=== PATIENT | male | born 1995 | race Two or more races ===

== ENCOUNTER 2020-02-20 13:08 | Outpatient (REF) | payer SELFPAY | END 2020-02-20 13:09 | disposition home or self-care (01) | LOC: HO.LAB 13:08 | PROVIDERS: Visit Provider Internal Medicine | DX: Z20.828 Contact with and (suspected) exposure to other viral communicable diseases (principal) | CPT/HCPCS: C9803; U0003 ==

== ENCOUNTER 2021-09-09 10:21 | Outpatient (REF) | payer OTHER, SELFPAY ==
[2021-09-09 11:35] LABS: Appearance Urine CLEAR; Color Urine YELLOW; Glucose Urine UA NEG (NEG); Leukocyte Esterase Urine NEG (NEG); Nitrite Urine NEG (NEG); PH 6.5 (5.0-8.0); Urine Blood NEG (NEG); Urine Ketones NEG (NEG); Urine Protein NEG (NEG-TRACE)
[2021-09-09 11:41] LABS: Alanine Aminotransferase 31 U/L (0-40); Albumin Level 4.4 g/dL (3.5-5.0); Alkaline Phosphatase 75 U/L (39-117); Anion Gap 13 (12-20); Aspartate Amino Transferase 35 U/L (5-37); Bilirubin Total 1.6 mg/dL (0.0-1.0); Blood Urea Nitrogen 7 mg/dL (9-16); C Reactive Protein 0.15 mg/dL (< or = 0.50); Calcium 9.5 mg/dL (8.4-10.2); Carbon Dioxide 27 mmol/L (22-29); Chloride 104 mmol/L (96-108); Cholesterol 162 mg/dL; Estimated Glomerular Filt Rate > 60; Glucose Fasting 91 mg/dL (60-99); HDL Cholesterol 53 mg/dL; LDL Cholesterol Calculated 98 mg/dl; Potassium 4.5 mmol/L (3.3-5.1); Sodium 139 mmol/L (135-145); Total Protein 7.4 g/dL (6.5-8.0); Triglycerides 57 mg/dL
[2021-09-09 11:54] LABS: HBS Num1 7.44 mIU/mL (0-7.99); HBc Num1 0.12 S/CO (0.00-0.79); HBsAGNum1 0.17 S/CO (0.00-0.99); HIV AB/AG Nonreactive (Nonreactive); HIV Num 1 0.07 S/CO (0.00-0.99); Hepatitis B Core Antibody Nonreactive (Nonreactive); Hepatitis B Surface Antigen Negative (Negative); TSH reflex Free T4 0.96 uIU/mL (0.32-4.0); ~HepC Num1 0.21 S/CO (0.00-0.79); ~Hepatitis B Surface Antibody NONREACTIVE (Nonreactive); ~Hepatitis C Antibody Nonreactive (Nonreactive)
[2021-09-09 14:05] LABS: CT PCR NOT DETECTED (Not Detect.); NG PCR NOT DETECTED (Not Detect.)
[2021-09-10 08:22] LABS: Syphilis Screen Nonreactive (Nonreactive)
[2021-09-11 14:07] LABS: Transglutaminase Ab IgG <1.0 U/mL; Transglutaminase IgA <1.0 U/mL
== END 2021-09-09 10:22 | disposition home or self-care (01) ==
LOC: HO.LAB 10:21
PROVIDERS: PCP Physician Assistant; Visit Provider Physician Assistant
DX: Z11.4 Encounter for screening for human immunodeficiency virus [HIV] (principal); Z13.220 Encounter for screening for lipoid disorders; Z13.29 Encounter for screening for other suspected endocrine disorder; Z11.3 Encounter for screening for infections with a predominantly sexual mode of transmission; Z20.2 Contact with and (suspected) exposure to infections with a predominantly sexual mode of transmission; K52.9 Noninfective gastroenteritis and colitis, unspecified; R14.0 Abdominal distension (gaseous); R30.0 Dysuria; R35.0 Frequency of micturition
CPT/HCPCS: 80053; 80061; 81003; 84443; 86140; 86364; 86704; 86706; 86780; 86803; 87340; 87389; 87491; 87591

== ENCOUNTER 2022-04-21 17:56 | Emergency (ER) | payer OTHER, SELFPAY ==
[2022-04-21 18:07] VITALS: BP 142/89; PULSE 72; RESP 20; TEMP 36.8; O2SAT 98; BMI 26.6
--- NOTE | 2022-04-21 18:07 | ED.MALEGU ---
HPI - Male Genitourinary General Chief complaint: Urogenital-Male <Heather Lopez CNP - Last Filed: 04/21/22 18:13> Stated complaint: ?UTI <Heather Lopez CNP - Last Filed: 04/21/22 18:13> Time Seen by Provider: 04/21/22 18:46 <Heather Lopez CNP - Last Filed: 04/21/22 18:13> Source: patient <Rey Hook DO - Last Filed: 04/21/22 18:56> Mode of arrival: ambulatory <DO Tiffani Rouse Last Filed: 04/21/22 18:56> Limitations: no limitations <DO Tiffani Rouse Last Filed: 04/21/22 18:56> History of Present Illness HPI Narrative: 26-year-old male presents emergency department complaining of blood in his urine. Patient states that he sent urine here is unsure if there was any blood when he arrived patient denies fevers chills chest pain nausea vomiting or diarrhea. Patient denies any trauma to the area patient is sexually active <Rey Hook DO - Last Filed: 04/21/22 18:56> MD Complaint: possible STD exposure <DO Tiffani Rouse Last Filed: 04/21/22 18:56> Related Data Home medications: Previous Rx's Medication Instructions Recorded ketoconazole 2 % shampoo 1 appl topical 3XW 4 weeks #120 mL 08/12/21 omeprazole 20 mg capsule,delayed 20 mg PO DAILY 60 days #60 caps 08/12/21 release oxybutynin chloride 5 mg 5 mg PO DAILY 30 days #30 tabs 11/13/21 tablet,extended release 24 hr <Heather Lopez CNP - Last Filed: 04/21/22 18:13> Allergies/Adverse reactions: Allergies Allergy/AdvReac Type Severity Reaction Status Date / Time No Known Allergies Allergy Verified 09/09/21 09:48 <Heather Lopez CNP - Last Filed: 04/21/22 18:13> Review of Systems Review of Systems: Review of systems: General: Patient denies any fever chills recent illness or falls Musculoskeletal: Denies back pain or body aches or other injuries HEENT: denies headache, runny nose, ear pain Respiratory: denies shortness of breath, cough Cardiovascular: no chest pain or palpitations : Hematuria denies dysuria, frequency Abdomen: no nausea vomiting denies abdominal pain Extremities: no swelling, no pain Skin: no diaphoresis <Rey Hook DO - Last Filed: 04/21/22 18:56> Yes all other systems are reviewed and are negative <Rey Hook DO - Last Filed: 04/21/22 18:56> [facility] Past Medical History Surgical History: Surgical History No pertinent past surgical history <Heather Lopez CNP - Last Filed: 04/21/22 18:13> Family History Family History: Family History Mother Hypertension Father Hypertension Diabetes <Heather Lopez CNP - Last Filed: 04/21/22 18:13> Social History Social History: Social History Housing: Apartment Alcohol intake: former Patient Tobacco Use Status: Never used Tobacco e-Cigarette/Vaping Use: Never Used Second Hand Smoke Exposure: No Substance Use Type: Marijuana service: No Current occupational status: employed Current occupation: painting/ [employer] Current occupational exposures/hazards: No Cognitive needs: No Hearing needs: No Vision needs: Yes <Heather Lopez CNP - Last Filed: 04/21/22 18:13> Physical Exam Vital Signs: Vital Signs: Last Vital Signs Temp 98.2 F 04/21/22 18:07 Pulse 72 04/21/22 18:07 Resp 20 04/21/22 18:07 BP 142/89 H 04/21/22 18:07 Pulse Ox 98 04/21/22 18:07 O2 Del Method 04/21/22 18:07 BMI result Body Mass Index 26.6 <Heather Lopez CNP - Last Filed: 04/21/22 18:13> Vital Signs: Last Vital Signs Temp 98.2 F 04/21/22 18:07 Pulse 72 04/21/22 18:07 Resp 20 04/21/22 18:07 BP 142/89 H 02/07/23 18:07 Pulse Ox 98 04/21/22 18:07 O2 Del Method 04/21/22 18:07 BMI result Body Mass Index 26.6 <Rey Hook DO - Last Filed: 04/21/22 18:56> General: Well-appearing well-nourished in no signs of distress HEENT: Normocephalic atraumatic Neck: No signs of JVD, no masses no tenderness or lymphadenopathy Cardiovascular: Regular rate and rhythm Respiratory: Clear to auscultation bilaterally Abdomen: Soft nontender no masses no CVA tenderness Extremities: Normal pedal pulses no signs of edema Skin: Dry warm no rashes Back: No tenderness full ROM <Rey Hook DO - Last Filed: 04/21/22 18:56> Course Course Course Narrative: This is an RME: Additional HPI, ROS, PE not included below will be deferred to primary provider. Patient is 26 old male presents emergency department, Reports hermaturia x 30-45 minutes. States this has happened once before, reportedly due to urinary retention. Denies dysuria, urinary frequency, ABD pain, back/ flank pain, nausea, vomiting, fevers, chills. Denies penile discharge. Requests testing for STI, has had recent new sexual contacts. <Heather Lopez SENIOR CARE PROVIDER - Last Filed: 04/21/22 18:13> Medical Decision Making Medical Decision Making [facility] Narrative: Urinalysis does not show any white blood cells or red blood cells I do not think there is any need for further testing I do not think that this patient needs to be treated for STDs this time with completely normal urinalysis today with patient follow-up with hi his doctor pending results and treatment <Rey Hook DO - Last Filed: 04/21/22 18:56> Differential Diagnosis Differential Diagnoses: The differential diagnosis associated with the presentation includes <Rey Hook DO - Last Filed: 04/21/22 18:56> UTI bladder cancer STIs. Patient <Rey Hook DO - Last Filed: 04/21/22 18:56> Admission/Observation Consideration of admission/observation: Escalation of care including admission/observation considered <Rey Hook DO - Last Filed: 04/21/22 18:56> Lab Data [facility] Lab Attestation statement: I reviewed the patient's lab results. <Rey Hook DO - Last Filed: 04/21/22 18:56> Labs: Lab Results 04/21/22 Range/Units 18:23 Urine Color Yellow Urine Appearance Clear Urine pH 6.0 (5.0-9.0) Ur Specific [place] 1.020 (1.005-1.025) Urine Protein Negative (Neg-Trace) mg/dL Urine Glucose (UA) Negative (Negative) mg/dL Urine Ketones Negative (Negative) mg/dL Urine Blood Negative (Negative) Urine Nitrite Negative (Negative) Ur Leukocyte Esterase Negative (Negative) <Heather Lopez CNP - Last Filed: 04/21/22 18:13> Lab Results 04/21/22 Range/Units 18:23 Urine Color Yellow Urine Appearance Clear Urine pH 6.0 (5.0-9.0) Ur Specific [place] 1.020 (1.005-1.025) Urine Protein Negative (Neg-Trace) mg/dL Urine Glucose (UA) Negative (Negative) mg/dL Urine Ketones Negative (Negative) mg/dL Urine Blood Negative (Negative) Urine Nitrite Negative (Negative) Ur Leukocyte Esterase Negative (Negative) <Rey Hook DO - Last Filed: 04/21/22 18:56> Discharge Plan Discharge Clinical Impression: Hematuria, Screening for STD (sexually transmitted disease) <Heather Lopez CNP - Last Filed: 04/21/22 18:13> Patient Disposition: Home, Self-Care <Heather Lopez CNP - Last Filed: 04/21/22 18:13> Instructions: Hematuria (ED) <Heather Lopez CNP - Last Filed: 04/21/22 18:13> Additional Instructions: Please follow up with STI screening. If you have any other concerns please return to the ED. <Heather Lopez CNP - Last Filed: 04/21/22 18:13> Prescriptions: No Action oxybutynin chloride 5 mg tablet extended release 24hr 5 mg PO DAILY 30 Days Qty: 30 3RF omeprazole 20 mg capsule,delayed release(DR/EC) 20 mg PO DAILY 60 Days Qty: 60 1RF ketoconazole 2 % shampoo 1 appl topical 3XW 28 Days Qty: 120 1RF <Heather Lopez CNP - Last Filed: 04/21/22 18:13>
[2022-04-21 18:41] LABS: Appearance Urine Clear; Color Urine Yellow; Glucose Urine UA Negative (Negative); Leukocyte Esterase Urine Negative (Negative); Nitrite Urine Negative (Negative); Urine Blood Negative (Negative); Urine Ketones Negative (Negative); Urine Protein Negative (Neg-Trace)
[2022-04-22 09:15] LABS: CT PCR NOT DETECTED (Not Detect.); NG PCR NOT DETECTED (Not Detect.)
== END 2022-04-21 19:55 | disposition home or self-care (01) ==
PROVIDERS: Nurse Practitioner Family; Emergency Provider Student in an Organized Health Care Education/Training Program; PCP Physician Assistant
DX: R31.9 Hematuria, unspecified (principal); Z20.2 Contact with and (suspected) exposure to infections with a predominantly sexual mode of transmission; Z79.899 Other long term (current) drug therapy
CPT/HCPCS: 0353U; 81003; 99282; 99283

== ENCOUNTER 2022-05-15 08:58 | Emergency (ER) | payer OTHER, SELFPAY ==
[2022-05-15 09:04] VITALS: BP 129/85; PULSE 73; RESP 18; TEMP 35.7; O2SAT 98; BMI 26.9
--- NOTE | 2022-05-15 09:40 | ED.MALEGU ---
HPI - Male Genitourinary General Chief complaint: Urogenital-Male Stated complaint: blood in urine, frequent urnination Time Seen by Provider: 05/15/22 09:40 Source: patient Mode of arrival: ambulatory Limitations: no limitations History of Present Illness HPI Narrative: Patient is a 26 year old assigned male at with no reported medical history presenting to the emergency department today requesting STI testing. Patient states that he is having burning with urination and is concerned he has an STI. Patient denies any dizziness, lightheadedness, abdominal pain, nausea, vomiting, fever, chills, blurry vision, double vision, loss of vision, chest pain, difficulty breathing, shortness of breath, back pain, night sweats, increased urinary frequency, increased urinary urgency, blood in his urine or stool, syncope or a near syncopal episode, recent trauma or falls, bowel incontinence, bladder incontinence, bowel retention, bladder retention, or any other complaints at this time. MD Complaint: possible STD exposure Severity: mild Severity scale (1-10): 2 Relieving factors: none Exacerbating factors: none Associated symptoms: Reports denies other symptoms Related Data Sexually active: Yes Previous Rx's Medication Instructions Recorded ketoconazole 2 % shampoo 1 appl topical 3XW 4 weeks #120 mL 08/12/21 omeprazole 20 mg capsule,delayed 20 mg PO DAILY 60 days #60 caps 08/12/21 release oxybutynin chloride 5 mg 5 mg PO DAILY 30 days #30 tabs 11/13/21 tablet,extended release 24 hr doxycycline hyclate 100 mg tablet 100 mg PO BID 7 days #14 tabs 05/15/22 Allergies Allergy/AdvReac Type Severity Reaction Status Date / Time No Known Allergies Allergy Verified 09/09/21 09:48 Review of Systems Constitutional: Constitutional: Reports no additional constitutional complaints, Denies chills, Denies fever(s) and Denies night sweats Eyes: Eyes: Reports no additional eye complaints, Denies blurry vision, Denies change in vision, Denies diplopia, Denies eye discharge, Denies loss of vision and Denies eye pain ENT: Denies dizziness Cardiovascular: Cardiovascular: Reports no additional cardiovascular complaints, Denies chest pain, Denies lightheadedness, Denies Loss of Consciousness and Denies dyspnea Respiratory: Respiratory: Reports no additional respiratory complaints and Denies dyspnea Gastrointestinal: Gastrointestinal: Reports no additional gastrointestinal complaints, Denies abdominal pain, Denies melena, Denies hematochezia, Denies change in bowel habits and Denies change in stool character Genitourinary: Genitourinary: Reports no additional male genitourinary complaints, Denies hematuria, Denies oliguria, Denies difficulty urinating, Reports dysuria, Denies urinary frequency, Denies urinary hesitancy, Denies urinary incontinence and Denies urinary urgency Musculoskeletal: Musculoskeletal: Reports no additional musculoskeletal complaints, Denies numbness and Denies tingling Neurologic: Denies dizziness, Denies loss of vision, Denies numbness and Denies tingling Psychiatric: Psychiatric: Reports no additional psychiatric complaints Endocrine: Endocrine: Reports no additional endocrine complaints Hematologic/Lymphatic: Hematologic/Lymphatic: Reports no additional hematologic/lymphatic complaints Allergic/Immunologic: Allergic/Immunologic: Reports no additional allergic/immunologic complaints [facility] Past Medical History Attestation statement: The following information was validated with the patient. Source: old records reviewed and nursing notes reviewed Surgical History No pertinent past surgical history Family History Family History Mother Hypertension Father Hypertension Diabetes Social History Social History Housing: Apartment Alcohol intake: former Patient Tobacco Use Status: Never used Tobacco Smoked in Last 30 Days: No e-Cigarette/Vaping Use: Never Used Second Hand Smoke Exposure: No Use of substances other than those prescribed or required for medical reasons: No Substance Use Type: Marijuana Any prior treatment program specific to substance use: No Advance Directives: No Advance Directives Information Provided: Yes service: No Current occupational status: employed Current occupation: [employer] Current occupational exposures/hazards: No Cognitive needs: No Hearing needs: No Vision needs: Yes Physical Exam Vital Signs: Vital Signs: Last Vital Signs Temp 96.2 F L 05/15/22 09:04 Pulse 73 05/15/22 09:04 Resp 18 05/15/22 09:04 BP 129/85 05/15/22 09:04 Pulse Ox 98 05/15/22 09:04 O2 Del Method 05/15/22 09:04 BMI result Body Mass Index 26.9 Const: General: cooperative, no acute distress, alert and awake Nutritional Appearance: well nourished Orientation/consciousness: patient oriented x3 Limitations: no limitations HEENT: Head: Yes normal to inspection and Yes atraumatic Ears: hearing grossly normal bilaterally and external ears normal General nose exam: Normal external nose present, no nasal discharge noted and no epistaxis Face and sinus: Yes normal facial exam, No abrasion and No laceration Mouth: Normal oral and palatal mucosa present, no drooling and no muffled voice Eyes: General: appearance normal, both eyes and all related structures Periorbital: periorbital findings normal Eyelids: Yes eyelids normal Conjunctivae: conjunctivae normal Pupils: Equal, round and reactive pupils present EOM: EOMs intact bilaterally Neck: Neck: Yes normal visual inspection, Yes full ROM and Yes no lymphadenopathy Chest: Chest palpation & inspection: normal inspection of the chest Resp: Effort & Inspection: normal respiratory effort and able to speak in complete sentences Auscultation: clear to auscultation bilaterally Cardio: Rate: regular rate Rhythm: regular rhythm GI: Inspection: Yes normal to inspection Palpation (GI): Soft to palpation, not firm, nontender, no guarding and not rigid Neuro: General: patient oriented x3 and moves all extremities Cranial nerves: Yes Equal, round and reactive pupils present Cognition (Neuro): normal cognition Motor exam (neuro): 5/5 motor strength present throughout Sensory Exam: Normal double simultaneous stimulation for sensation Coordination: [id number] test normal Extrem: General: Yes normal to inspection, Yes full ROM and Yes capillary refill normal Psych: Appearance: grossly normal Mental Status: mental status grossly normal Affect: normal affect Attitude: cooperative Thought process: Normal thought process present Thought content: Normal thought content present Insight: Good insight present (Psych) Medications Administered Discontinued Medications Generic Name Dose Route Start Last Admin Trade Name Freq PRN Reason Stop Dose Admin Ceftriaxone Sodium 500 mg/ 0 mg 05/15/22 09:57 05/15/22 10:09 Lidocaine HCl 1 ml IM 05/15/22 09:58 1 kit ONCE ONE Administration Medical Decision Making Medical Decision Making [facility] Narrative: Patient is a 26 year old assigned male at with no reported medical history presenting to the emergency department today with burning with urination. Patient's physical exam was unremarkable. Patient's CT/NG is pending. I explained my physical exam findings to the patient. I answered all questions asked by the patient. Patient received IM Ceftriaxone while here. I stressed the importance of the patient taking his medication as prescribed. I stressed the importance of the patient following up with his primary care provider. I stressed the importance of the patient returning to the emergency department immediately if his symptoms were to worsen or if he were to develop any dizziness, shortness of breath, difficulty breathing, chest pain, blurry vision, loss of vision, nausea, vomiting, abdominal pain, fever, chills, back pain, or any other complaints. Patient verbalized agreement and understanding with this treatment plan and discharge. Differential Diagnosis Differential Diagnoses: The differential diagnosis associated with the presentation includes STI testing Lab Data Labs: Lab Results 05/15/22 Range/Units 09:18 Chlam trachomat DNA PCR NOT DETECTED (Not Detect.) N.gonorrhoeae DNA (PCR) NOT DETECTED (Not Detect.) Discharge Plan Discharge Clinical Impression: STI (sexually transmitted infection) Patient Disposition: Home, Self-Care Instructions: Sexually Transmitted Diseases (ED), Male Condom Use (ED), Safe Sex Practices (ED) Additional Instructions: Follow up with your primary care provider. Return to the emergency department immediately if your symptoms worsen or if you develop any dizziness, shortness of breath, difficulty breathing, chest pain, blurry vision, loss of vision, nausea, vomiting, abdominal pain, fever, chills, back pain, or any other complaints. Prescriptions: New doxycycline hyclate 100 mg tablet 100 mg PO BID 7 Days Qty: 14 0RF No Action oxybutynin chloride 5 mg tablet extended release 24hr 5 mg PO DAILY 30 Days Qty: 30 3RF omeprazole 20 mg capsule,delayed release(DR/EC) 20 mg PO DAILY 60 Days Qty: 60 1RF ketoconazole 2 % shampoo 1 appl topical 3XW 28 Days Qty: 120 1RF Referrals: Benja Kidd PA-C [Primary Care Provider] - Stand Alone Forms: Work/School Release Interventions: ED Discharge Assessment Last Done: 05/15/22 10:13 Discharge Date/Time: 05/15/22 10:13 Print Language: Armenian
[2022-05-15] MEDS: cefTRIAXone sodium 500 MG, Lidocaine HCl 1 % MPF 1 ML IM (10:09)
[2022-05-15 10:56] LABS: CT PCR NOT DETECTED (Not Detect.); NG PCR NOT DETECTED (Not Detect.)
== END 2022-05-15 10:13 | disposition home or self-care (01) ==
PROVIDERS: Emergency Provider Emergency Medicine Emergency Medical Services; PCP Physician Assistant
DX: A64 Unspecified sexually transmitted disease (principal); R31.9 Hematuria, unspecified; Z79.899 Other long term (current) drug therapy
CPT/HCPCS: 0353U; 96372; 99284; J0696

== ENCOUNTER 2022-08-05 09:35 | Emergency (ER) | payer OTHER, SELFPAY ==
[2022-08-05 09:58] VITALS: BP 125/73; PULSE 73; RESP 18; TEMP 36.6; O2SAT 98; BMI 22.9
[2022-08-05 11:42] LABS: Appearance Urine Clear; Color Urine Yellow; Glucose Urine UA Negative (Negative); Leukocyte Esterase Urine Negative (Negative); Nitrite Urine Negative (Negative); Urine Blood Negative (Negative); Urine Ketones Negative (Negative); Urine Protein Negative (Neg-Trace)
[2022-08-05] MEDS: valACYclovir HCL 1,000 MG TABLET 1000 MG PO (11:59)
--- NOTE | 2022-08-05 12:23 | ED_ITS ---
HPI - General Adult General Chief complaint: General Medical Stated complaint: ? STD Time Seen by Provider: 08/05/22 11:17 History of Present Illness HPI narrative: patient complains of red bumps on penis for 2 days, denies testicular pain or swelling denies any discharge no dysuria Related Data Previous Rx's Medication Instructions Recorded ketoconazole 2 % shampoo 1 appl topical 3XW 4 weeks #120 mL 08/12/21 omeprazole 20 mg capsule,delayed 20 mg PO DAILY 60 days #60 caps 08/12/21 release oxybutynin chloride 5 mg 5 mg PO DAILY 30 days #30 tabs 11/13/21 tablet,extended release 24 hr doxycycline hyclate 100 mg tablet 100 mg PO BID 7 days #14 tabs 05/15/22 valacyclovir 1 gram tablet 1,000 mg PO BID 10 days #20 tabs 08/05/22 (Valtrex) Allergies Allergy/AdvReac Type Severity Reaction Status Date / Time No Known Allergies Allergy Verified 08/05/22 09:56 [facility] Past Medical History Source: nursing notes reviewed Surgical History No pertinent past surgical history Family History Family History Mother Hypertension Father Hypertension Diabetes Social History Social History Housing: Apartment Alcohol intake: current Alcohol intake frequency: holidays/special occasions only Patient Tobacco Use Status: Never used Tobacco Smoked in Last 30 Days: No e-Cigarette/Vaping Use: Never Used Second Hand Smoke Exposure: No Use of substances other than those prescribed or required for medical reasons: No Substance Use Type: Marijuana Advance Directives: No Advance Directives Information Provided: Yes service: No Current occupational status: employed Current occupation: [employer] Current occupational exposures/hazards: No Cognitive needs: No Hearing needs: No Vision needs: Yes Physical Exam ED Vital Signs: Vital Signs - 24 hr 08/05/22 09:58 Temperature 98 F Pulse Rate 73 Respiratory Rate 18 Blood Pressure 125/73 Pulse Oximetry 98 Oxygen Delivery Method Room Air BMI result Body Mass Index 22.9 general appearance no acute distress comfortable The pharynx is clear no redness swelling or exudate Neck is supple Abdomen soft nontender general exam is notable for 3 vesicles on the tip of the penis, otherwise there is no discharge no testicular tenderness or swelling no other rash or skin change no ulceration Extremities for range of motion x4 Skin no rash Course Course Course Narrative: vesicular rash had the appearance of herpes so patient is treated with Valtrex, the areas cultured, GC chlamydia cultures are sent as well and patient is advised [facility] and given the number, 8 he is advised to get his partner tested as well Urinalysis is negative and patient is discharged Medications Administered Discontinued Medications Generic Name Dose Route Start Last Admin Trade Name Freq PRN Reason Stop Dose Admin Valacyclovir HCl 1,000 mg 08/05/22 11:49 08/05/22 11:59 Valacyclovir Hcl 1,000 Mg Tablet PO 08/05/22 11:50 1,000 mg ONCE ONE Administration Medical Decision Making Lab Data Labs: Lab Results 08/05/22 08/05/22 Range/Units 11:24 11:24 Urine Color Yellow Urine Appearance Clear Urine pH 7.0 (5.0-9.0) Ur Specific [place] 1.020 (1.005-1.025) Urine Protein Negative (Neg-Trace) mg/dL Urine Glucose (UA) Negative (Negative) mg/dL Urine Ketones Negative (Negative) mg/dL Urine Blood Negative (Negative) Urine Nitrite Negative (Negative) Ur Leukocyte Esterase Negative (Negative) Chlam trachomat DNA PCR NOT DETECTED (Not Detect.) N.gonorrhoeae DNA (PCR) NOT DETECTED (Not Detect.) Discharge Plan Discharge Clinical Impression: Herpes genitalis Patient Disposition: Home, Self-Care Additional Instructions: the sores may be herpes but I am not sure As treatment works best if started right away we started Valtrex Culture results will not be back for several days Follow with [facility] for further evaluation Return any time any concerns Prescriptions: New valacyclovir [Valtrex] 1 gram tablet 1,000 mg PO BID 10 Days Qty: 20 0RF No Action oxybutynin chloride 5 mg tablet extended release 24hr 5 mg PO DAILY 30 Days Qty: 30 3RF doxycycline hyclate 100 mg tablet 100 mg PO BID 7 Days Qty: 14 0RF omeprazole 20 mg capsule,delayed release(DR/EC) 20 mg PO DAILY 60 Days Qty: 60 1RF ketoconazole 2 % shampoo 1 appl topical 3XW 28 Days Qty: 120 1RF Stand Alone Forms: Work/School Release Interventions: ED Discharge Assessment Last Done: 08/05/22 12:43 Discharge Date/Time: 08/05/22 12:43
[2022-08-05 13:54] LABS: CT PCR NOT DETECTED (Not Detect.); NG PCR NOT DETECTED (Not Detect.)
== END 2022-08-05 12:43 | disposition home or self-care (01) ==
PROVIDERS: Physician Assistant; Physician Assistant Medical; Emergency Provider Emergency Medicine Emergency Medical Services; PCP Physician Assistant
DX: A60.00 Herpesviral infection of urogenital system, unspecified (principal)
CPT/HCPCS: 0353U; 36415; 81003; 87255; 99283

== ENCOUNTER 2022-08-15 09:36 | Outpatient (REF) | payer OTHER, SELFPAY ==
[2022-08-15 10:13] LABS: Hematocrit 44.7 % (42.0-52.0); Hemoglobin 15.1 g/dl (14.0-18.0); Mean Corpuscular HGB Conc 33.8 g/dl (31.0-36.0); Mean Corpuscular Hemoglobin 29.4 pg (27.0-33.0); Mean Platelet Volume 10.3 fL (9.4-12.4); Platelet Count 240 X10*3/uL (160-400); Red Blood Count 5.14 X10*6/uL (4.60-5.80); Red Cell Distribution Width 13.4 % (11.0-16.0); White Blood Count 7.7 X10*3/uL (4.8-10.8)
[2022-08-15 10:35] LABS: Alanine Aminotransferase 21 U/L (0-40); Albumin Level 4.4 g/dL (3.5-5.0); Alkaline Phosphatase 72 U/L (39-117); Anion Gap 13 (12-20); Aspartate Amino Transferase 17 U/L (5-37); Bilirubin Total 1.5 mg/dL (0.0-1.0); Blood Urea Nitrogen 13 mg/dL (9-16); Calcium 9.5 mg/dL (8.4-10.2); Carbon Dioxide 26 mmol/L (22-29); Chloride 106 mmol/L (96-108); Estimated Glomerular Filt Rate > 60; Glucose Fasting 86 mg/dL (60-99); Potassium 4.3 mmol/L (3.3-5.1); Sodium 141 mmol/L (135-145); Total Protein 7.5 g/dL (6.5-8.0)
[2022-08-15 10:51] LABS: TSH reflex Free T4 1.04 uIU/mL (0.32-4.0)
[2022-08-18 06:23] LABS: Herpes Simplex Type 2 IgG <0.90 index
[2022-08-24 16:23] LABS: HSV 1 IgM IFA Negative (Negative); HSV 2 IgM IFA Negative (Negative)
== END 2022-08-15 09:37 | disposition home or self-care (01) ==
LOC: HO.LAB 09:36
PROVIDERS: PCP Physician Assistant; Visit Provider Physician Assistant
DX: Z13.1 Encounter for screening for diabetes mellitus (principal); Z11.3 Encounter for screening for infections with a predominantly sexual mode of transmission; R63.4 Abnormal weight loss
CPT/HCPCS: 36415; 80053; 84443; 85027; 86695; 86696

== ENCOUNTER 2022-10-20 12:22 | Outpatient (AMB) | payer OTHER, SELFPAY ==
--- NOTE | 2022-10-20 13:04 | AM.OFFWIN_ITS ---
Intake Vital Signs 10/20/22 13:17 Height 6 ft 2 in Weight 87.713 kg BMI 24.8 BP 110/74 Blood Pressure Location Lt brachial Position Sitting Pulse 90 Pulse Source Pulse Oximeter Temp 97.9 F Temp Source Temporal Artery Scan Pulse Oximetry (%) 99 Oxygen Delivery Method Room Air Intake Visit Reasons: Est/sore throat, cough x1 week [phone] Intake Note: Pt is here c/o sore throat, bad cough for the last week. Pt states he is now starting to loose his voice. Patient Tobacco Use Status: Never used Tobacco Allergies No Known Allergies Allergy (Verified 10/20/22 13:05) Do you need a note to return to daycare/school/sports/work: Yes HPI HPI Comments History of Present Illness Details 27-year-old male presents with 2 weeks of sore throat, and has now developed a cough. Patient states that the throat pain is causing the cough, it is difficult for him to sleep. He also reports change in voice, but denies any measured fevers, chills, diaphoresis, or inability to swallow. FOR[facility] Surgical History No pertinent past surgical history Family History Mother Hypertension Father Hypertension Diabetes Social History Housing: Apartment Alcohol intake: current Alcohol intake frequency: holidays/special occasions only Patient Tobacco Use Status: Never used Tobacco e-Cigarette/Vaping Use: Never Used Second Hand Smoke Exposure: No Substance Use Type: Marijuana service: No Current occupational status: employed Current occupation: [employer] Current occupational exposures/hazards: No Cognitive needs: No Hearing needs: No Vision needs: Yes Review of Systems Const Details: Constitutional: No Fever, No Chills ENT/Mouth: No Ear Pain, No Hoarseness, positive sore throat Eyes: No Eye Pain, No Swelling, No Redness, No Foreign Body Cardiovascular: No Chest Pain, No SOB Respiratory: Positive Cough, No Dyspnea Gastrointestinal: No Nausea, No Vomiting, No Diarrhea, No abdominal Pain Genitourinary: No Dysuria, No Hematuria Musculoskeletal: Now joint pain, No Myalgias, No Joint Swelling Skin: No Skin lacerations, No rash Neuro: No Weakness, No Dizziness, No Headache All systems reviewed & are unremarkable except as noted in HPI and below Physical Exam Vital Signs: Last Vital Signs Temp 97.9 F 10/20/22 13:17 Pulse 90 10/20/22 13:17 BP 110/74 10/20/22 13:17 Pulse Ox 99 10/20/22 13:17 Oxygen Delivery Method Room Air 10/20/22 13:17 BMI result Body Mass Index 24.8 Appearance: Alert. Oriented X3. No acute distress. Eyes: Pupils equal, round and reactive to light. EOMI. ENT: Pharynx erythematous. No tonsillar swelling or exudates. Bilateral tympanic membranes erythematous, bulging, suppurative without perforation. Cerumen noted to both canals. Canals are intact. no mastoid tenderness noted. Neck: Normal inspection. Neck supple. No cervical lymphadenopathy. No nuchal rigidity. No vertebral tenderness. CVS: Normal heart rate and rhythm. Pulses normal. Respiratory: No respiratory distress. Breath sounds normal. Abdomen: Soft and nontender. Skin: Skin warm and dry. Normal skin color. Normal skin turgor. Extremities: Gait well-balanced well coordinated. Neuro: No motor deficit. No sensory deficit. Cranial nerves 2-12 intact Results AMB Rapid Strep AMB Rapid Strep Negative Last Edit by Effie Chung CMA on 10/20/22 13:25 Results Reviewed Results Reviewed: Laboratory Last Values Strep Scn [facility] Clinic Negative 10/20/22 13:24 Assessment & Plan Assessment & Plan (1) Cough: Code(s): R05.9 - Cough, unspecified (2) Sore throat: Code(s): J02.9 - Acute pharyngitis, unspecified Plan 27-year-old male presents with 2 weeks of upper respiratory symptoms, sore throat, and cough. Patient's strep test is negative, however patient's pharynx is erythematous, with the Centor scale of 3. No peritonsillar abscess or epiglottitis noted. The bilateral cerumen impactions noted, MA will irrigate. Patient is afebrile, appears nontoxic. No indication of olayinka Tonsillar abscess or epiglottitis. No mastoid tenderness. No nuchal rigidity. No meningeal signs. No tracheal stridor. Able to manage his own secretions. 14:00 bilateral canals intact, tympanic membranes normal. No indication of otitis media or externa. Plan of care is for treating for pharyngitis with Augmentin. Patient verbalized understanding of discharge instructions. Ve rbalized understandings of signs and symptoms indicating need for emergent intervention. Orders: Orders [facility] Covid-19 Ag Today J02.9 - Acute pharyngitis, unspecified, R05.9 - Cough, unspecified Libertad Little NP AMB Rapid Strep Screen Today Z13.9 - Encounter for screening, unspecified Otis Everett MD Medications: New amoxicillin-pot clavulanate 875-125 mg 1 tab PO Q12H 7 days 14 tabs 0RF Libertad Little NP Patient Instructions: You were evaluated for sore throat and a cough. Your COVID test is pending. We will call you with your results. We are treating for pharyngitis with antibiotic called Augmentin. Take Augmentin 875 mg every 12 hours for the next 7 days. Drink plenty of fluids. Alternate Tylenol 650 mg every 6 hours and Motrin 600 mg every 6 hours as needed for pain and fever management. Consider taking these medications 3 hours apart so you have pain and fever management every 3 hours. Write down what time you take these medications to prevent accidental overdose. Motrin is the same medication as Advil and ibuprofen. Tylenol is the same medication as acetaminophen. We disimpacted the cerumen from both of her ear canals today. Consider using [id number] Debrox drops as directed on the package to help reduce cerumen impaction. Thank you for choosing this urgent care for evaluation. Please follow-up with primary care physician as needed. Return to the emergency department for any new, concerning, or worsening symptoms. Coding Level of Care Code Est Pt Level 3 (96548) Diagnoses Cough R05.9 Sore throat J02.9
[2022-10-20 13:17] VITALS: BP 110/74; PULSE 90; TEMP 36.6; O2SAT 99; BMI 24.8
== END 2022-10-20 16:19 | disposition home or self-care (01) ==
PROVIDERS: PCP Physician Assistant; Visit Provider Nurse Practitioner Family
DX: R05.9 Cough, unspecified (principal); J02.9 Acute pharyngitis, unspecified
CPT/HCPCS: 87880; 99213

== ENCOUNTER 2022-10-20 14:14 | Outpatient (REF) | payer OTHER, SELFPAY ==
[2022-10-20 14:40] LABS: Binax Internal Control QC Valid; Binax Now Covid-19 Ag Negative (Negative); Binax Performed by: PAULP
== END 2022-10-20 14:15 | disposition home or self-care (01) ==
LOC: HO.HMGCLDS 14:14
PROVIDERS: PCP Physician Assistant; Visit Provider Nurse Practitioner Family
DX: J02.9 Acute pharyngitis, unspecified (principal); R05.9 Cough, unspecified; Z20.822 Contact with and (suspected) exposure to COVID-19
CPT/HCPCS: 87811; C9803